=== PATIENT | female | born 1985 | race African-American/Black ===

== ENCOUNTER 2020-07-12 07:38 | Emergency (ER) | payer SELFPAY ==
[2020-07-12] MEDS ORDERED: Ketorolac Tromethamine 30 MG/ML VIAL ONE (08:02)
== END 2020-07-12 08:17 | disposition home or self-care (01) ==
LOC: ERS 07:38
DX: K02.9 Dental caries, unspecified (principal); I10 Essential (primary) hypertension; F17.210 Nicotine dependence, cigarettes, uncomplicated
CPT/HCPCS: 96372; 99283; J1885

== ENCOUNTER 2021-07-08 12:08 | Emergency (ER) | payer OTHER, SELFPAY ==
[2021-07-08 19:42] LABS: SARS-CoV-2 PCR by NAA Not Detected (NotDetected)
== END 2021-07-08 12:50 | disposition home or self-care (01) ==
LOC: ERS 12:08
DX: B34.9 Viral infection, unspecified (principal); Z20.822 Contact with and (suspected) exposure to COVID-19; I10 Essential (primary) hypertension; Z87.891 Personal history of nicotine dependence
CPT/HCPCS: 99283; U0003; U0005

== ENCOUNTER 2022-07-02 14:25 | Emergency (ER) | payer SELFPAY ==
[2022-07-02] MEDS ORDERED: Ketorolac Tromethamine 30 MG/ML VIAL ONE (14:42)
== END 2022-07-02 15:32 | disposition home or self-care (01) ==
LOC: ERS 14:25
DX: M17.12 Unilateral primary osteoarthritis, left knee (principal); I10 Essential (primary) hypertension; F17.210 Nicotine dependence, cigarettes, uncomplicated
CPT/HCPCS: 96372; J1885

== ENCOUNTER 2022-10-26 17:46 | Emergency (ER) | payer OTHER, SELFPAY | END 2022-10-26 20:33 | disposition home or self-care (01) | LOC: ERS 17:46 | DX: S20.219A Contusion of unspecified front wall of thorax, initial encounter (principal); I10 Essential (primary) hypertension; F17.210 Nicotine dependence, cigarettes, uncomplicated; V49.10XA Passenger injured in collision with unspecified motor vehicles in nontraffic accident, initial encounter; Y92.410 Unspecified street and highway as the place of occurrence of the external cause | CPT/HCPCS: 93005 ==

== ENCOUNTER 2023-07-06 12:28 | Emergency (ER) | payer SELFPAY ==
[2023-07-06] MEDS ORDERED: Ibuprofen 200 MG TAB ONE (13:24)
[2023-07-06] MEDS ORDERED: Acetaminophen 500 MG TAB ONE (13:24)
[2023-07-06 14:29] LABS: SARS-CoV-2 NAA Rapid Test Not Detected (NotDetected)
== END 2023-07-06 14:55 | disposition home or self-care (01) ==
LOC: ERS 12:28
DX: J10.1 Influenza due to other identified influenza virus with other respiratory manifestations (principal); Z20.822 Contact with and (suspected) exposure to COVID-19; I10 Essential (primary) hypertension
CPT/HCPCS: 99283